=== PATIENT | male | born 1990 | race Two or more races ===

== ENCOUNTER 2020-10-20 14:12 | Inpatient (IN) | payer OTHER ==
[~2020-10-20] VITALS: Ht 175.3 cm; Wt 81.6 kg
[2020-10-24] MEDS ORDERED: INTESTINEX680 M1 PO (15:35)
[2020-10-24] MEDS ORDERED: AMOX1TAB5 PO (15:35)
[2020-10-24] MEDS ORDERED: PROTONIX40 M1 PO (15:35)
== END 2020-10-24 16:00 | disposition home or self-care (01) | DRG 392 ==
LOC: ER 14:12 → MEDJ 10-21 14:45 → MEDI 10-21 14:45
PROVIDERS: ADMIT Internal Medicine; ATTEND Internal Medicine
PROC: 0DB68ZX Excision of Stomach, Via Natural or Artificial Opening Endoscopic, Diagnostic (ICD-10-PCS; principal; 2020-10-24)
PROC: 0DB48ZX Excision of Esophagogastric Junction, Via Natural or Artificial Opening Endoscopic, Diagnostic (ICD-10-PCS; 2020-10-24)
DX: K52.89 Other specified noninfective gastroenteritis and colitis (principal); K92.0 Hematemesis; K20.90 Esophagitis, unspecified without bleeding; K44.9 Diaphragmatic hernia without obstruction or gangrene; D72.828 Other elevated white blood cell count; E86.0 Dehydration

== ENCOUNTER 2021-03-18 14:50 | Emergency (ER) | payer OTHER ==
[~2021-03-18] VITALS: Ht 175.3 cm; Wt 81.6 kg
[~2021-03-18 14:50] MED LIST: AMOX1TAB5 PO; INTESTINEX680 M1 PO; PROTONIX40 M1 PO
[2021-03-18] MEDS ORDERED: PROTONIX40 M1 (15:01)
[2021-03-18] MEDS ORDERED: NASAL MIST126 ML (15:01)
[2021-03-19] MEDS ORDERED: CARAFATE1 GM PO (06:00)
[2021-03-19] MEDS ORDERED: PEPCID AC20 MG PO (06:00)
[2021-03-19] MEDS ORDERED: PROTONIX20 MG PO (06:00)
== END 2021-03-19 06:15 | disposition home or self-care (01) ==
LOC: ER 14:50
DX: K29.70 Gastritis, unspecified, without bleeding (principal)